=== PATIENT | female | born 1975 | race Two or more races ===

== ENCOUNTER 2019-10-27 20:26 | Outpatient (AMB) | payer OTHER, SELFPAY ==
--- NOTE | 2019-10-27 20:42 | URCARE_ITS ---
Intake Ht./Wt. Decline/Exclusions Patient Declined Height and Weight this visit: No PT Meets exclusion criteria: No Vital Signs 10/27/19 20:43 Height 1.57 m Height Method Measured Weight 80.739 kg Weight Measurement Method Standing Scale BMI 32.5 Temp 103.2 F H Temp Source Oral Pulse 131 H Pulse Source Monitor Respiration 20 BP 184/114 H Blood Pressure Source Automatic Cuff Blood Pressure Location Right Lower Arm Position Sitting Pulse Oximetry (%) 98 Oxygen Delivery Method Room Air Intake Visit Reasons: UC Fever of unknown origin Triage Triage Allergy / Med Rec Allergies No Known Allergies Allergy (Verified 10/27/19 21:00) Band Placement: Patient Identification MEGGAN: [id number] Arrival Mode of Arrival: Private Vehicle Method of Arrival: Ambulatory Accompanied By: Self PCP or OBGYN visit in last 3 months: No Language Preferred Language: [place] [employer] Officer Required: No Female History Now: No : No Social History Alcohol / Drugs Hx Alcohol Use: No Hx Substance Use: No Safety Do You Feel Safe at Home: Yes Authorities Contacted: N/A Whyte Fall Scale Special Populations Patient Comatose, Paralyzed or Immobile: No Patient Under the Age of 44 Years Old: No Assessment History of falling; immediate or within 3 months: No Secondary diagnosis: No Ambulatory aid: None IV Infusion: No Gait/Transferring: Normal/bedrest/immobile Mental Status: Oriented to own ability Score Score: 0 Risk Level/Action Risk Level: Low Risk Action: Good Basic Nursing Care Fall Star Level 1 Fall Star Level 1: Yes Patient Education Topic Education Topics: Discharge Instructions and Plan of Care Teaching Recipient: Patient Readiness, Motivation to Learn: Active Methods: Verbal instruction and Hand Out Educ Materials Suggested by INFO Button/Rx Monograph Given: No Response: Verbalize Understanding [employer] Officer Required: No [facility] Hx Congestive Heart Failure: No Hx Diabetes Mellitus Type 1: No Hx Diabetes Mellitus Type 2: No Hx Renal Disease: No Hx Chronic Obstructive Pulmonary Disease (COPD): No Past Medical History Reviewed and agree with Nursing documentation.: Yes Past Medical History History Provided By: Patient Past Medical History: No Cardiac Medical History Hx Congestive Heart Failure: No Endocrine Medical History Hx Diabetes Mellitus Type 1: No Hx Diabetes Mellitus Type 2: No Genitourinary Medical History Hx Renal Disease: No Respiratory Medical History Hx COPD: No HPI Fever of Unknown Origin History of Present Illness [age]-year-old female presented with complaints of sudden onset of fevers chills severe sore throat mild runny nose no shortness of breath chest pain skin rash nausea or vomiting or abdominal pain. Patient states that she has taken some Tylenol approximately 4 hours ago which offered some relief Review of Systems (UC) Const Constitutional: Reports system reviewed and no additional complaints, except as documented Eyes Eyes: Reports system reviewed and no additional complaints, except as documented ENT Ears. Nose, Mouth, and Throat: Reports system reviewed and no additional complaints, except as documented Card Cardiovascular: Reports system reviewed and no additional complaints, except as documented Resp Respiratory: Reports system reviewed and no additional complaints, except as do cumented Skin/Breast Skin/Breast: Reports system reviewed and no additional complaints, except as documented Exam (UC) Alert and oriented x3 in no acute distress skin is normal color no diaphoresis eyes anicteric PERRLA canals are clear TMs pearly and retracted nose patent no discharge mucosa posterior pharynx is inflamed and erythematous but no exudate neck supple with bilateral submandible lymphadenopathy lungs are clear to auscultation bilaterally heart is tacky but normal S1-S2 no murmurs rubs or gallops noted SPO2%: 98% SPO2 type: Room Air SPO2% Normal/Abnormal: Normal Office Procedures Level of Care Nursing/Assessment/Reassessment Patient Status: Established Patient Nursing Assessment/Reassessment: Triage Asessment, Initial Vital Signs and RN General Assessments Coordination of Care: DC Instructions Simple 1-2 sets, Lab/Imaging Orders and Specimen Collection Medications: PO Meds Established Patient Charge Established Patient Point Assignment: 70 Established Patient Point Assignment: Level 2 (40-75) Procedures: Pulse Ox reading: Yes Influenza A&B: Yes Strep Screen: Yes Rapid Influenza Bedside Test Rapid Flu: Negative Rapid Strep Bedside Test Rapid Strep: Positive Office Meds Augmentin 875-125 mg Performing Provider: Matt Brooks PA-C Administered by: Daniel Scruggs RN on 10/27/19 21:09 Dose Route Admin Location Lot Number Expiration Date NDC [employer] 1 tab PO ibuprofen Performing Provider: Matt Brooks PA-C Administered by: Daniel Scruggs RN on 10/27/19 21:09 Dose Route Admin Location Lot Number Expiration Date NDC [employer] 800 mg PO Supplemental Info Patient temperature has decreased to 101.2 blood pressure decreased to 153/97 heart rate ranged from 1 28-1 31 however patient is dehydrated as she has not had liquids all day today. Patient is currently stable nontoxic-appearing and denies shortness of breath chest pain weakness or fatigue. Patient will be discharged home with instructions on hydrating well taking blood pressure medications as directed and following up with primary care provider in the morning patient is also advised that if symptoms should worsen go to the emergency department patient verbalized understanding Assessment and Plan Assessment & Plan (1) Strep pharyngitis: Plan - Matt Brooks PA-C: Your lab test was positive for strep bacterial infection in your throat take antibiotics as directed hydrate well take medications to help reduce your fever follow-up with your primary care provider if no improvement in 3 days with medication (2) Essential (primary) hypertension: Plan - Matt Brooks PA-C: Your blood pressure is elevated today. Be sure to take your medications as directed, lower your salt intake as well as your sugar intake exercise to lose and maintain a healthy body weight, and drink plenty of water. Go to the emergency department or call 911 if you should experience shortness of breath chest pain dizziness nausea vomiting weakness or fatigue and follow-up with your primary care provider in 3 days for recheck of your blood pressure. Be mindful of the OTC medicine such as those used for congestion as they can sometimes increase your blood pressure Plan Details Other Medications: New: Augmentin 875-125 mg (amoxicillin-pot clavulanate) 1 tab PO ONCE 1 tab 0RF NS amoxicillin-pot clavulanate 500-125 mg 1 tab PO Q12H 10 days 20 tabs 0RF Discontinued: ibuprofen Discontinued Reason: Office Medication has been Documented as given 800 mg (2 x 400 mg) PO ONCE 2 tabs 0RF dexamethasone sodium phosphate Discontinued Reason: Wrong Patient 10 mg PO ONCE 1 mL 0RF Augmentin 875-125 mg (amoxicillin-pot clavulanate) Discontinued Reason: System Issue 1 tab PO ONCE 1 tab 0RF NS Other Orders: Orders: UC Augmentin 875 mg-125 mg tablet (amoxicillin-pot clavulanate) Today ibuprofen 400 mg tablet Today Rapid Influenza Today UC Rapid Strep Today Instructions: Choices Low Salt High Blood Pressure Stroke Link High Blood Pressure ED Strep Pharyngitis Conf Additional Information PA/RIVER [employer] GUIDE Supervising Physician: Norberto Greenberg [facility] Evaluation Discharge Information Seen, Treated and Released by Provider: No Left Prior to Receiving Discharge Instructions: No Transfer to Outside Facility: No Vital Signs Vitals Signs N/A: Yes Pain Pain Medication / Other Intervention Provided: No Medication Medication Given this Visit: No Discharge Information Condition on Discharge: Stable Mode of Discharge: Ambulatory Discharge Transportation: Private Vehicle Instructions [employer] Officer Required: No Discharge Instructions Given To: Patient Was Follow up Care Ordered: Yes Verbalizes Understanding of Discharge Instructions: Yes [facility] information card provided?: Yes Patient plan follow up w/PCP for [facility]: No
[2019-10-27 20:43] VITALS: BP 184/114; PULSE 131; RESP 20; TEMP 39.6; O2SAT 98; BMI 32.5
[2019-10-27 21:19] VITALS: BP 153/93; PULSE 134; RESP 20; TEMP 38.4; O2SAT 98
== END 2019-10-27 21:25 | disposition home or self-care (01) ==
PROVIDERS: PCP Physician Assistant; Referring Provider Physician Assistant; Visit Provider Physician Assistant
DX: I10 Essential (primary) hypertension (principal)

== ENCOUNTER → 2025-05-12 | Outpatient (CLI) | payer OTHER, SELFPAY ==
[2025-05-12 09:10] LABS: Collection Type, Urine Clean Catch; RBC,Urine 0 /hpf (0-3); Squamous Epithelial Cell,Urine 0 /hpf (0-5); WBC,Urine 0 /hpf (0-5)
[2025-05-12 09:23] LABS: Basophils # (Auto) 0.0 Thou/mm3 (0.0-0.2); Basophils % (Auto) 0 % (0-2.5); Eosinophils # (Auto) 0.1 Thou/mm3 (0.0-0.5); Eosinophils % (Auto) 1 % (0-10); Hematocrit 41.4 % (36.0-46.0); Hemoglobin 13.8 g/dL (12.0-16.0); Immature Granulocytes Auto 0.04 Thou/mm3 (0.00-0.00); Lymphocytes # (Auto) 2.1 Thou/mm3 (1.0-4.8); Lymphocytes % (Auto) 25 % (10-50); Mean Corpuscular HGB Conc 33.3 g/dl (31.0-37.0); Mean Corpuscular Hemoglobin 29.1 pg (25.0-35.0); Mean Corpuscular Volume 87 fL (80-100); Monocytes # (Auto) 0.5 Thou/mm3 (0.0-0.8); Monocytes % (Auto) 5 % (0-12); Neutrophils # (Auto) 5.6 Thou/mm3 (1.8-7.7); Neutrophils % (Auto) 67 % (37-80); Nucleated Red Blood Cell # 0.00 Thou/mm3 (0.00-0.00); Nucleated Red Blood Cell % 0 /100 WBC (0); Platelet Count 309 Thou/mm3 (140-440); RDW Standard Deviation 40.1 fL (36.4-46.3); Red Blood Count 4.75 Miln/mm3 (4.00-5.20); White Blood Count 8.3 Thou/mm3 (3.6-11.0)
[2025-05-12 09:42] LABS: Bilirubin,Urine Negative (Negative); Blood,Urine Negative (Negative); Clarity,Urine Clear (Clear/Hazy); Color,Urine Lt-Yellow (Lt Yel-Yel); Culture Indicated,Urine Not Indicated; Glucose, Urine Negative (Negative); Ketones,Urine Negative (Negative); Leukocyte Esterase,Urine Negative (Negative); Nitrite,Urine Negative (Negative); PH,Urine 5.5 (5.0-7.0); Protein,Urine Negative (Neg - Trace); Specific Gravity,Urine 1.013 (1.001-1.035); Urobilinogen,Urine Negative mg/dL (0.0-1.0)
[2025-05-12 10:20] LABS: Glucose Estimated Average 105 mg/dL (80-131); Hemoglobin A1C 5.3 % Hgb (4.8-6.0)
[2025-05-12 10:25] LABS: Alanine Aminotransferase 28 U/L (10-49); Albumin, Serum 4.3 gm/dL (3.5-5.0); Albumin/Globulin Ratio 1.5 (1.2-2.2); Alkaline Phosphatase 92 U/L (46-116); Anion Gap 11 (7-16); Aspartate Amino Transferase 16 U/L (0-34); BUN/Creatinine Ratio 15 Ratio (12-20); Bilirubin,Total 0.5 mg/dL (0.3-1.2); Blood Urea Nitrogen 12 mg/dL (9-23); Calcium 9.3 mg/dL (8.3-10.6); Calcium (Corrected) 9.3 mg/dL (8.5-10.1); Carbon Dioxide 25.7 mMol/L (20.0-31.0); Cardiac Risk Estimate 4.4 RATIO (3.7-5.6); Chloride 105 mMol/L (98-107); Cholesterol 210 mg/dL (132-200); Creatinine (Component) 0.8 mg/dL (0.6-1.3); Globulin 2.9 gm/dL (2.3-3.5); Glucose 96 mg/dL (74-106); HDL Cholesterol 48 mg/dL (40-60); LDL Cholesterol,Calculated 119 mg/dL (0-130); Osmolality,Calculated 282 (275-295); Potassium 4.1 mMol/L (3.4-5.1); Sodium 142 mMol/L (136-145); Thyroid Stimulating Hormone 1.80 uIU/mL (0.55-4.78); Total Protein 7.2 gm/dL (5.7-8.2); Triglycerides 217 mg/dL (30-150); eGFR > 60 See Note
[2025-05-12 10:30] LABS: Vitamin D 25 Hydroxy Total 22.0 ng/mL (7.3-40.2)
== END | disposition home or self-care (01) ==
PROVIDERS: PCP Nurse Practitioner Family; Referring Provider Nurse Practitioner Family; Visit Provider Nurse Practitioner Family
DX: I10 Essential (primary) hypertension (principal); E78.5 Hyperlipidemia, unspecified
CPT/HCPCS: 36415; 80053; 80061; 81001; 82306; 83036; 84443; 85025